=== PATIENT | male | born 1980 | race Caucasian/White ===

== ENCOUNTER 2017-01-04 12:08 | Observation (INO) ==
[2017-01-04 14:37] LABS: Basophils # 0.1 K/mcL (0.0-0.2); Basophils % 0.6 %; Eosinophils # 0.1 K/mcL (0.0-0.6); Eosinophils % 0.9 %; Hematocrit 41.3 % (37.5-50.1); Hemoglobin 13.7 g/dL (12.9-16.9); Immature Granulocytes % 2.2 % (0-4); Lymphocytes # 1.4 K/mcL (0.6-4.6); Lymphocytes % 12.5 %; Mean Corpuscular HGB Conc 33.2 g/dL (31.6-35.5); Mean Corpuscular Hemoglobin 28.4 pg (28.0-33.3); Mean Corpuscular Volume 85.5 fL (83.0-100.0); Mean Platelet Volume 9.9 fL (9.4-12.4); Monocytes # 0.9 K/mcL (0.0-1.3); Monocytes % 8.6 %; Neutrophils # 8.1 K/mcL (1.6-8.9); Platelet Count 267 K/mcL (140-400); Red Blood Count 4.83 M/mcL (4.19-5.50); Red Cell Distribution Width 14.4 % (11.5-14.5); Segmented Neutrophils % 75.2 %
[2017-01-04 14:48] LABS: BUN/Creatinine Ratio 11 (6-26); Blood Urea Nitrogen 12 mg/dL (8-26); Calcium 9.8 mg/dL (8.6-10.8); Carbon Dioxide 26 mEq/L (19-29); Chloride 101 mEq/L (98-109); Glucose 106 mg/dL (70-99); Osmolality,Calculated 286 (280-300); Potassium 2.9 mEq/L (3.5-4.5); Sodium 138 mEq/L (136-145); eGFR For African Americans > 60 (> 60); eGFR For Non-African Americans > 60 (> 60)
--- NOTE | 2017-01-04 14:55 | Emergency Department Note ---
Disposition Clinical Impression: Cellulitis Qualifiers: Site of cellulitis: extremity Site of cellulitis of extremity: lower extremity Laterality: left Qualified Code(s): L03.116 - Cellulitis of left lower limb Disposition: Admitted As Inpatient Condition: Good Skin/Abscess/FB HPI Chief complaint: ED Skin/Abscess/Foreign Body Stated complaint: cellulitis in L leg Time Seen by Provider: 01/04/17 14:15 Source: patient Mode of arrival: private vehicle Limitations: no limitations Nursing Notes Reviewed: Yes Vital Signs Reviewed: Yes HPI Narrative: 36-year-old male presents to the ER with a chief complaint of left lower extremity redness. Patient states it started on the first of this month. He states it happened after he was standing for prolonged period of time. He was seen on the second at an urgent care where he was started on doxycycline for cellulitis. He states since that time that he has had worsening redness of his leg traveling more proximal. He denies any fevers nausea vomiting. He did have diarrhea the first 2 days but that subsided. No history of diabetes. Denies IV drug abuse. No history of DVT. No other complaints. Pt Subjective Complaint: discoloration Onset (ago): day(s) Location: LLE Severity: moderate Quality: aching Consistency: intermittent Improves with: none Worsens with: movement Context: none Associated symptoms: Denies: fever, nausea, vomiting Treatments prior to arrival: antibiotic Home Medications Medication Instructions Recorded Confirmed Amlodipine Besylate 10 mg PO DAILY 01/01/17 01/04/17 Citalopram Hydrobromide [Celexa] 40 mg PO DAILY 01/01/17 01/04/17 Losartan Potassium [Cozaar] 100 mg PO DAILY 01/01/17 01/04/17 Metoprolol Succinate 100 mg PO DAILY 01/01/17 01/04/17 hydroCHLOROthiazide 25 mg PO DAILY 01/01/17 01/04/17 [Hydrochlorothiazide] Loratadine [Claritin] 10 mg PO DAILY 01/04/17 01/04/17 Previous Rx's Medication Instructions Recorded Doxycycline 100 mg PO BID #14 capsule 01/01/17 HYDROcodone/Acet 5/325 mg [[place] 1 tab PO Q4H PRN #10 tab 01/01/17 5-325 mg] Allergies Allergy/AdvReac Type Severity Reaction Status Date / Time No Known Allergies Allergy Verified 01/01/17 19:39 All systems ED: reviewed and negative except as stated. Constitutional: Denies: fever, chills Cardiovascular: Denies: chest pain Respiratory: Denies: dyspnea Gastrointestinal: Denies: abdominal pain, nausea, vomiting, diarrhea Integumentary: Reports: rash Past Medical History - Past Medical History Attestation: Yes The following information was validated with the patient. Source: patient Medical history: Reports: hypertension Surgical history: Reports: non-contributory - Social History Smoking Status: 2nd Hand Smoke Exposure Smokeless Tobacco Status: No Alcohol use: Reports: occasionally Drug use: Reports: none Physical Exam - General Limitations: no limitations General appearance: alert, in no apparent distress - Head Head exam: atraumatic, normocephalic, normal inspection - Eye Eye exam: Present: normal appearance, EOMI - ENT ENT exam: normal exam - Neck Neck exam: Present: normal inspection, full ROM - Chest Chest inspection: Present: normal inspection, symmetric chest wall rise - Respiratory Respiratory exam: Present: normal lung sounds bilaterally - Cardiovascular Cardiovascular exam: Present: regular rate, normal rhythm, normal heart sounds - Abdominal Exam Abdominal exam: Present: soft, Non-Tender. Absent: tenderness - Extremities Exam Extremities exam: Present: normal inspection, full ROM - Expanded Upper Extremity Exam Shoulder exam: Present: normal inspection, full ROM Arm exam: Present: normal inspection, full ROM Elbow exam: Present: normal inspection, full ROM Forearm/Wrist exam: Present: normal inspection, full ROM Hand exam: Present: normal inspection, full ROM Vascular exam: Normal: radial pulse - Expanded Lower Extremity Exam Hip/Pelvis exam: Present: normal inspection, full ROM Upper leg exam: Present: normal inspection, full ROM, erythema (Small area of erythema just inferior to the left inguinal crease) Knee exam: Present: normal inspection, full ROM Lower leg exam: Present: normal inspection, full ROM, erythema (There is erythema to the left lower cruz but he distal to the knee with circumferential erythema just superior to the left ankle.) Ankle exam: Present: normal inspection, full ROM Foot/toe exam: Present: normal inspection, full ROM - Neurological Exam Neurological exam: Present: alert, other (GCS 15. Nonfocal neurologic exam.) - Psychiatric Psychiatric exam: Present: normal affect, normal mood - Skin Skin exam: Present: warm, dry, intact, erythema (Left lower extremity from the knee distal) Course Course Narrative: Patient seen and examined. He has cellulitis from his left knee to his foot. He has failed outpatient therapy. We will obtain labs and likely admission for cellulitis felt outpatient therapy. Vital Signs Temperature 97.7 F 01/04/17 12:20 Pulse Rate 90 01/04/17 12:20 Respiratory Rate 18 01/04/17 12:20 Blood Pressure 165/90 01/04/17 12:20 O2 Sat by Pulse Oximetry 96 01/04/17 12:20 Temperature 97.6 F 01/04/17 17:54 Pulse Rate 80 01/04/17 17:54 Respiratory Rate 17 01/04/17 17:54 Blood Pressure 181/98 01/04/17 17:54 O2 Sat by Pulse Oximetry 96 01/04/17 17:54 Oxygen Delivery Oxygen Delivery Room Air Skin/Abscess/Foreign Body - MDM Narrative Medical decision making narrative: 36-year-old male presents to the ER due to redness of his left lower extremity. He was placed on antibiotics 3 days ago without improvement. States is actually worsened a little bit. No fevers nausea vomiting or diarrhea at home recently. He is well-appearing nontoxic here. He does have cellulitis from his knee distal on the left. Patient given a dose of vancomycin and admitted for failed outpatient therapy. - Lab Data Lab results reviewed: Yes I reviewed the patient's lab results. Result diagrams: 01/04/17 14:23 01/04/17 14:23 Lab Results 01/04/17 01/04/17 Range/Units 14:23 14:23 WBC 10.8 (4.3-11.1) K/mcL RBC 4.83 (4.19-5.50) M/mcL Hgb 13.7 (12.9-16.9) g/dL Hct 41.3 (37.5-50.1) % MCV 85.5 (83.0-100.0) fL MCH 28.4 (28.0-33.3) pg MCHC 33.2 (31.6-35.5) g/dL RDW 14.4 (11.5-14.5) % Plt Count 267 (140-400) K/mcL MPV 9.9 (9.4-12.4) fL Immature Gran % 2.2 (0-4) % Seg Neutrophils % 75.2 % Lymphocytes % 12.5 % Monocytes % 8.6 % Eosinophils % 0.9 % Basophils % 0.6 % Neutrophils # 8.1 (1.6-8.9) K/mcL Lymphocytes # 1.4 (0.6-4.6) K/mcL Monocytes # 0.9 (0.0-1.3) K/mcL Eosinophils # 0.1 (0.0-0.6) K/mcL Basophils # 0.1 (0.0-0.2) K/mcL Sodium 138 (136-145) mEq/L Potassium 2.9 L (3.5-4.5) mEq/L Chloride 101 (98-109) mEq/L Carbon Dioxide 26 (19-29) mEq/L BUN 12 (8-26) mg/dL Creatinine 1.06 (0.72-1.25) mg/dL Est GFR ( Amer) > 60 (> 60) Est GFR (Non-Af Amer) > 60 (> 60) BUN/Creatinine Ratio 11 (6-26) Glucose 106 H (70-99) mg/dL Calculated Osmolality 286 (280-300) Calcium 9.8 (8.6-10.8) mg/dL Magnesium 2.2 (1.6-2.6) mg/dL - Radiology Data Radiology results reviewed: Yes I reviewed the patient's radiology results. Foot X-Ray 01/04/17 15:25 IMPRESSION: No acute osseous abnormality identified. D/ / Deuce Cunningham MD / Deuce Cunningham MD Interpreting Provider: Deuce Cunningham MD Attestation Statement - Attestation Attestation: I examined this patient and my medical decision-making was reviewed with the Resident Physician, Dr. Moses. I agree with the documented findings, disposition and treatment plan as described except to the extent set forth below. Patient is a 36-year-old morbidly obese white male who presents the emergency department today with gradually worsening left lower extremity redness pain and swelling concerning for cellulitis. Patient with no prior history of cellulitis or abscess issues. Patient denies any history of diabetes. Patient denies any fevers chills or other constitutional symptoms. Patient was seen on December 31 at an urgent care with a small area of redness to his left lower leg, diagnosed with cellulitis and started on doxycycline. Patient's been taking his medication as prescribed and despite the symptoms have been worsening since he started antibiotics on the second. Area of redness is very large and encompasses the entire circumferential area of the lower leg as well as the medial upper thigh. Patient denies any pain in the left calf or behind the knee. No history of trauma to the lower extremity. Patient is hemodynamically stable on arrival. I agree with patient's physical exam findings as documented. Patient was started on IV antibiotics following blood cultures. There is no discrete abscess or area of induration that is concerning for a fluid collection. Due to the extensive nature of the cellulitis and outpatient treatment failure we will admit the patient for continued IV antibiotics and wound management.
[2017-01-04] MEDS ORDERED: Vancomycin 2,000 MG in D5% in Water 250 ML IVPB ONE (15:17)
[2017-01-04 15:25] LABS: Magnesium 2.2 mg/dL (1.6-2.6)
[2017-01-04] MEDS ORDERED: Vancomycin 2,000 MG in D5% in Water 500 ML IVPB ONE (15:30)
[2017-01-04] MEDS ORDERED: *HR* HYDROcodone/Acet 5/325 mg TABLET PO PRN (16:53)
[2017-01-04] MEDS ORDERED: Naloxone 0.4 MG/ML INJ IVP PRN (16:53)
[2017-01-04] MEDS ORDERED: *HR* Morphine 2 MG/ML SYRINGE IVP PRN (16:53)
[2017-01-04] MEDS ORDERED: Ondansetron 4 MG/2 ML VIAL IVP PRN (16:53)
[2017-01-04] MEDS ORDERED: Acetaminophen 325 MG TABLET PO PRN (16:53)
--- NOTE | 2017-01-04 17:00 | Internal Med History&Physical ---
Date of Encounter: 01/04/17 Time of Encounter: 16:59 Assessment and Plan (1) Cellulitis Current visit: Yes Status: Acute Patient with cellulitis of entire Left leg with associated lymphangitis and subcutaneous clear fluid collection Patient is afebrile and his WBC is normal, he is not septic There is no focal entry point and he is not an IV drug user Continue Vancomycin-patient failed out patient therapy Add Zosyn for strep/anerobic coverage Obtain Left leg CT scan to r/o any collection Even though his Left leg is firm from this swelling, he does have good circulation and there is no evidence of compartment syndrome at this time Pain control Doppler USS to r/o DVT High risk due to use of Vancomycin Qualifiers: Site of cellulitis: extremity Site of cellulitis of extremity: lower extremity Laterality: left Qualified Code(s): L03.116 - Cellulitis of left lower limb (2) Hypertension Current visit: Yes Status: Chronic Uncontrolled, possibly exacerbated by pain Resume home meds Qualifiers: Hypertension type: essential hypertension Qualified Code(s): I10 - Essential (primary) hypertension (3) Hypokalemia Current visit: Yes Status: Acute Repleted with 40meq K Mag is normal Possibly from use of HCTZ for HTN Continue to monitor (4) Morbid obesity Current visit: Yes Status: Chronic Qualifies for bariatic surgery based on BMI of 65 with HTN/ZIGGY Lifestyle modification (5) ZIGGY (obstructive sleep apnea) Current visit: Yes Status: Chronic Ensure CPAP at bedtime Internal Medicine - H&P: HPI Chief complaint: Left leg swelling Admitted From: Home Plans for Post Hospital Care: Home History of present illness: Mr. Godwin is a 36 year old male with PH of Morbid Obesity, HTN, Anxiety, ZIGGY on CPAP at home He presented following a days history of swelling, redness and pain of his LLE following work on Sunday He reports he had been standing for a prolonged period of time prior to onset He denies trauma, insect bite, extreme temperature or recent surgery He presented to the Urgent care where he was given doxy po and he returned to the ER because of worsening pain and swelling. He denies fever or chills, or recent travels. he denied IV drug use He has no allergies No chest, abdomen or neurologic symptoms Past Med Surg Social Fam HX - Past Medical History Medical history: hypertension, other (ZIGGY) Psychiatric history: anxiety - Past Surgical History Surgical History: non-contributory - Social History Smoking Status: 2nd Hand Smoke Exposure Smokeless Tobacco Status: No Alcohol use: occasionally Drug use: none Internal Medicine - H&P: Meds Amlodipine Besylate 10 mg PO DAILY 01/01/17 [History] Citalopram Hydrobromide [Celexa] 40 mg PO DAILY 01/01/17 [History] Doxycycline 100 mg PO BID #14 capsule 01/01/17 [Rx] HYDROcodone/Acet 5/325 mg [[place] 5-325 mg] 1 tab PO Q4H PRN #10 tab 01/01/17 [Rx ] Losartan Potassium [Cozaar] 100 mg PO DAILY 01/01/17 [History] Metoprolol Succinate 100 mg PO DAILY 01/01/17 [History] hydroCHLOROthiazide [Hydrochlorothiazide] 25 mg PO DAILY 01/01/17 [History] Loratadine [Claritin] 10 mg PO DAILY 01/04/17 [History] 3 Allergy/AdvReac Type Severity Reaction Status Date / Time No Known Allergies Allergy Verified 01/01/17 19:39 All Systems PM: A 10-system review of systems was performed and is negative for pertinent findings except as documented above in the HPI. - Constitutional Constitutional: no chills, no fever(s), no night sweats - EENT Eyes: no change in vision, no discharge, no pain, no photophobia Ears: no ear discharge, no ear pain, no tinnitus Nose, mouth and throat: no dysphagia, no nasal discharge, no neck pain, no sore throat - Cardiovascular Cardiovascular ROS IM: no chest pain, no diaphoresis, no dyspnea, no lightheadedness, no palpitations, no syncope - Respiratory Respiratory: no cough, no dyspnea, no wheezing, no excessive phlegm production - Gastrointestinal Gastrointestinal: no abdominal pain, no diarrhea, no hematemesis, no hematochezia, no melena, no nausea, no vomiting - Musculoskeletal Musculoskeletal ROS IM: as per HPI - Integumentary Integumentary IM: as per HPI - Neurological Neurological ROS: no confusion, no convulsions, no focal weakness, no numbness, no tingling, no tremor(s) - Hematologic/Lymphatic Hematologic/Lymphatic: no easy bruising - Constitutional Vitals: Temp Pulse Resp BP Pulse Ox 97.7 F 90 18 165/90 96 01/04/17 12:20 01/04/17 12:20 01/04/17 12:20 01/04/17 12:20 01/04/17 12:20 General appearance: Present: mild distress, A&O X 3, morbidly obese, pleasant - Head Head exam: Present: atraumatic, normocephalic - Eye Eye exam: Present: PERRL, conjuntiva pink, sclera anicteric Pupils: Present: PERRL - Neck Neck exam general surgery: Present: supple, trachea midline. Absent: lymphadenopathy - Respiratory Respiratory exam: Present: CTAB. Absent: accessory muscle use, rales, rhonchi, wheezes - Cardiovascular Cardiovascular exam: Present: RRR, +S1, +S2. Absent: diastolic murmur, gallop, rubs, systolic murmur - GI/Abdominal GI/Abdominal exam: Present: normal bowel sounds, soft, no peritoneal signs. Absent: distended, tenderness - Extremities Exam Additional comments: LLE with diffuse erythema from the ankle to the knee, associated subcutaneous fluid collection with spontaneous drainage of serous fluid Associated tenderness++. he also has lymphangitis up to his hip Left foot sensation is intact and toes are well perfused Internal Med - H&P Results - Labs CBC & Chem 7: 01/04/17 14:23 01/04/17 14:23 Labs: Short CBC 01/04/17 Range/Units 14:23 WBC 10.8 (4.3-11.1) K/mcL Hgb 13.7 (12.9-16.9) g/dL Hct 41.3 (37.5-50.1) % Plt Count 267 (140-400) K/mcL Neutrophils # 8.1 (1.6-8.9) K/mcL BMP 01/04/17 14:23 Sodium 138 Potassium 2.9 L Chloride 101 Carbon Dioxide 26 BUN 12 Creatinine 1.06 Glucose 106 H Calcium 9.8 - Impressions ITS Impressions Foot X-Ray 01/04/17 15:25 IMPRESSION: No acute osseous abnormality identified. D/ / Deuce Cunningham MD / Deuce Cunningham MD Interpreting Provider: Deuce Cunningham MD
[2017-01-04] MEDS: *HR* Heparin 5,000 UNIT/ML VIAL SQ SCH (19:07)
[2017-01-05 01:43] LABS: Basophils # 0.1 K/mcL (0.0-0.2); Basophils % 0.7 %; Eosinophils # 0.2 K/mcL (0.0-0.6); Eosinophils % 1.6 %; Hematocrit 37.4 % (37.5-50.1); Hemoglobin 12.5 g/dL (12.9-16.9); Immature Granulocytes % 2.3 % (0-4); Lymphocytes # 1.6 K/mcL (0.6-4.6); Lymphocytes % 16.4 %; Mean Corpuscular HGB Conc 33.4 g/dL (31.6-35.5); Mean Corpuscular Volume 86.8 fL (83.0-100.0); Monocytes # 0.9 K/mcL (0.0-1.3); Monocytes % 9.3 %; Neutrophils # 6.9 K/mcL (1.6-8.9); Platelet Count 255 K/mcL (140-400); Red Blood Count 4.31 M/mcL (4.19-5.50); Red Cell Distribution Width 14.4 % (11.5-14.5); Segmented Neutrophils % 69.7 %
[2017-01-05 01:55] LABS: BUN/Creatinine Ratio 14 (6-26); Blood Urea Nitrogen 16 mg/dL (8-26); Calcium 9.3 mg/dL (8.6-10.8); Carbon Dioxide 27 mEq/L (19-29); Chloride 103 mEq/L (98-109); Glucose 110 mg/dL (70-99); Hemoglobin A1C 5.2 %; Osmolality,Calculated 292 (280-300); Sodium 140 mEq/L (136-145); eGFR For African Americans > 60 (> 60); eGFR For Non-African Americans > 60 (> 60)
[2017-01-05] MEDS: *HR* Heparin 5,000 UNIT/ML VIAL SQ SCH ×4 (01:57→16:27)
[2017-01-05] MEDS ORDERED: Vancomycin 2,000 MG in D5% in Water 250 ML IVPB SCH (03:00)
[2017-01-05] MEDS: Vancomycin 2,000 MG in D5% in Water 500 ML IVPB SCH ×2 (04:09→16:22)
--- NOTE | 2017-01-05 08:36 | Internal Med Progress Note ---
Date of Encounter: 01/05/17 Time of Encounter: 08:36 - Assessment and plan (1) Cellulitis Current Visit: Yes Status: Acute Assessment and plan: Patient with cellulitis of entire Left leg with associated lymphangitis and subcutaneous clear fluid collection Patient is afebrile and his WBC is normal, he is not septic There is no focal entry point and he is not an IV drug user Continue vanco and Zosyn till cultures are back CT not done due to body size Doppler sair to be poor stud due to habitus, but no DVT Continue pain control High risk due to use of Vancomycin Qualifiers: Site of cellulitis: extremity Site of cellulitis of extremity: lower extremity Laterality: left Qualified Code(s): L03.116 - Cellulitis of left lower limb (2) Hypertension Current Visit: Yes Status: Chronic Assessment and plan: Controlled, continue current meds Qualifiers: Hypertension type: essential hypertension Qualified Code(s): I10 - Essential (primary) hypertension (3) Hypokalemia Current Visit: Yes Status: Acute Assessment and plan: K 3.0 Continue daily potassium replacement (4) Morbid obesity Current Visit: Yes Status: Chronic Assessment and plan: Lifestyle modification (5) ZIGGY (obstructive sleep apnea) Current Visit: Yes Status: Chronic Assessment and plan: Ensure CPAP at night - Subjective Interval history: Seen and evaluated at bedside No new complains CT scan not done due to patient size Remains afebrile Awaiting blood and wound culture - Constitutional Vitals: Temp Pulse Resp BP Pulse Ox 98.2 F 87 16 111/65 98 01/05/17 07:00 01/05/17 07:00 01/05/17 07:00 01/05/17 07:00 01/05/17 07:00 General appearance: Present: A&O X 3, morbidly obese, pleasant, no acute distress - Head Head exam: Present: atraumatic, normocephalic - Eye Eye exam: Present: PERRL, conjuntiva pink, sclera anicteric Pupils: Present: PERRL - Neck Neck exam general surgery: Present: supple, trachea midline. Absent: lymphadenopathy - Respiratory Respiratory exam: Present: CTAB. Absent: accessory muscle use, rales, rhonchi, wheezes - Cardiovascular Cardiovascular exam: Present: RRR, +S1, +S2. Absent: diastolic murmur, gallop, rubs, systolic murmur - GI/Abdominal GI/Abdominal exam: Present: normal bowel sounds, soft, no peritoneal signs. Absent: distended, tenderness - Extremities Exam Additional comments: LLE with diffuse erythema from the ankle to the knee, associated subcutaneous fluid collection with spontaneous drainage of serous fluid Associated tenderness++. he also has lymphangitis up to his hip Left foot sensation is intact and toes are well perfused Leg exam does look improved compared to 01/05/17 - Neurological Exam Neurological exam: Present: alert, CN II-XII intact, oriented X3, no focal deficits. Absent: pronater drift, facial droop, speech deficit - Skin Skin exam: Present: dry, intact Internal Medicine: Result - Labs CBC & Chem 7: 01/05/17 01:24 01/05/17 01:24 Labs: Short CBC 01/05/17 Range/Units 01:24 WBC 9.9 (4.3-11.1) K/mcL Hgb 12.5 L (12.9-16.9) g/dL Hct 37.4 L (37.5-50.1) % Plt Count 255 (140-400) K/mcL Neutrophils # 6.9 (1.6-8.9) K/mcL BMP 01/05/17 01:24 Sodium 140 Potassium 3.0 L Chloride 103 Carbon Dioxide 27 BUN 16 Creatinine 1.13 Glucose 110 H Calcium 9.3 Consult Discharge Plan - Plan Referrals: Chet Lubin MD [Primary Care Provider] -
[2017-01-05] MEDS: Loratadine 10 MG TABLET PO SCH (10:42)
[2017-01-05] MEDS: hydroCHLOROthiazide 25 MG TABLET PO SCH (10:42)
[2017-01-05] MEDS: amLODIPine 5 MG TABLET PO SCH (10:42)
[2017-01-05] MEDS: Metoprolol XL (24 HR) Succ 50 MG TAB.ER.24H PO SCH (10:43)
[2017-01-05] MEDS: Piperacillin/Tazobactam 3.375 GM in D5% in Water (Mini-Bag+) 100 ML IVPB SCH (17:43)
[2017-01-06] MEDS: Piperacillin/Tazobactam 3.375 GM in D5% in Water (Mini-Bag+) 100 ML IVPB SCH ×3 (01:52→17:31)
[2017-01-06] MEDS: *HR* Heparin 5,000 UNIT/ML VIAL SQ SCH ×3 (01:52→17:29)
[2017-01-06 03:59] LABS: BUN/Creatinine Ratio 16 (6-26); Blood Urea Nitrogen 16 mg/dL (8-26); Calcium 9.1 mg/dL (8.6-10.8); Carbon Dioxide 26 mEq/L (19-29); Chloride 102 mEq/L (98-109); Glucose 120 mg/dL (70-99); Osmolality,Calculated 286 (280-300); Potassium 3.2 mEq/L (3.5-4.5); Sodium 137 mEq/L (136-145); eGFR For African Americans > 60 (> 60); eGFR For Non-African Americans > 60 (> 60)
[2017-01-06] MEDS: Vancomycin 2,000 MG in D5% in Water 500 ML IVPB SCH ×3 (05:14→21:22)
--- NOTE | 2017-01-06 08:25 | Internal Med Progress Note ---
Date of Encounter: 01/06/17 Time of Encounter: 08:25 - Assessment and plan (1) Cellulitis Current Visit: Yes Status: Acute Assessment and plan: Patient with cellulitis of entire Left leg with associated lymphangitis and subcutaneous clear fluid collection Patient is afebrile and his WBC is normal, he is not septic Day 2 on Vanco and Zosyn, continue same, vanco trough sub-therapeutic Surgery consulted for possible I and D CT not done due to body size Doppler said to be poor stud due to habitus, but no DVT Continue pain control High risk due to use of Vancomycin Qualifiers: Qualified Code(s): L03.116 - Cellulitis of left lower limb (2) Hypertension Current Visit: Yes Status: Chronic Assessment and plan: Controlled, continue current meds Qualifiers: Qualified Code(s): I10 - Essential (primary) hypertension (3) Hypokalemia Current Visit: Yes Status: Acute Assessment and plan: K 3.2 Continue daily potassium replacement (4) Morbid obesity Current Visit: Yes Status: Chronic Assessment and plan: Lifestyle modification (5) ZIGGY (obstructive sleep apnea) Current Visit: Yes Status: Chronic Assessment and plan: Ensure CPAP at night - Subjective Interval history: Seen and evaluated at bedside He is being managed for LLE cellulitis This morning he complained of pain on the leg, he otherwise denies any other complains He is ambulatory - Constitutional Vitals: Temp Pulse Resp BP Pulse Ox 97.7 F 77 20 133/75 98 01/06/17 07:16 01/06/17 07:16 01/06/17 07:16 01/06/17 07:16 01/06/17 07:16 General appearance: Present: A&O X 3, morbidly obese, pleasant, no acute distress - Head Head exam: Present: atraumatic, normocephalic - Eye Eye exam: Present: PERRL, conjuntiva pink, sclera anicteric Pupils: Present: PERRL - Neck Neck exam general surgery: Present: supple, trachea midline. Absent: lymphadenopathy - Respiratory Respiratory exam: Present: CTAB. Absent: accessory muscle use, rales, rhonchi, wheezes - Cardiovascular Cardiovascular exam: Present: RRR, +S1, +S2. Absent: diastolic murmur, gallop, rubs, systolic murmur - GI/Abdominal GI/Abdominal exam: Present: normal bowel sounds, soft, no peritoneal signs. Absent: distended, tenderness - Extremities Exam Additional comments: LLE wih diffuse swelling and redness, improved compared to admission but worsening/stable subcutaneous swelling with flucutancy and induration - Neurological Exam Neurological exam: Present: alert, CN II-XII intact, oriented X3, no focal deficits. Absent: pronater drift, facial droop, speech deficit - Skin Skin exam: Present: dry Internal Medicine: Result - Labs CBC & Chem 7: 01/05/17 01:24 01/06/17 03:30 Labs: BMP 01/06/17 03:30 Sodium 137 Potassium 3.2 L Chloride 102 Carbon Dioxide 26 BUN 16 Creatinine 0.99 Glucose 120 H Calcium 9.1 Consult Discharge Plan - Plan Referrals: Chet Lubin MD [Primary Care Provider] -
--- NOTE | 2017-01-06 09:36 | General Surgery Consult Note ---
<Melanie Nieves - Last Filed: 01/06/17 10:52> Date of Encounter: 01/06/17 Time of Encounter: 09:15 Assessment and Plan (1) Cellulitis Current Visit: Yes Status: Acute Patient has had 6 days of cellulitis with failed outpatient treatment with doxycycline. No fever documented during hospital stay. WBC has been within normal limits. Patient initiated on Vanco and Zosyn 2 days ago and has seen no improvement of redness. Vanco trough today subtherapeutic. Xray showed no osteomyelitis. LLE US of the abscess has been ordered. Plan: - awaiting LLE US of abscess - continue Vanco and Zosyn Qualifiers: Site of cellulitis: extremity Site of cellulitis of extremity: lower extremity Laterality: left Qualified Code(s): L03.116 - Cellulitis of left lower limb (2) Hypokalemia Current Visit: Yes Status: Acute K= 3.2. Managed by primary team. (3) Hypertension Current Visit: Yes Status: Chronic Qualifiers: Hypertension type: essential hypertension Qualified Code(s): I10 - Essential (primary) hypertension (4) Morbid obesity Current Visit: Yes Status: Chronic (5) ZIGGY (obstructive sleep apnea) Current Visit: Yes Status: Chronic History of Present Illness Consult date: 01/06/17 Reason for consult: other (cellulitis and possible abcess) Requesting physician: Todd Johnson History of present illness: Patient is a 36-year-old male presented to the ER with left lower extremity red rash and pain and admitted for cellulitis with failed outpatient therapy. 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 He denies any trauma that night. Sunday went to urgent care and received doxycycline. He did not notice any changes and therefore came into the ED on evening. Only associated symptom was diarrhea which began on Sunday. Denies fevers, chills. Not an IV drug user or smoker. X-ray showed soft tissue swelling along the dorsal aspect of the midfoot. CT unable to be obtained due to size. Doppler US of the LLE for DVT unable to visualize due to body habitus. Patient was initiated on Vanco and Zosyn and no improvement of redness since starting. Vanco trough today was 7.9. Wound culture showed normal skin wili. LLE US of the area to see if there is an abscess has been ordered. 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) - Family History Grandfather Living Status: Cause of : lung cancer Father Living Status: Mother Living Status: Still Living Medications and Allergies Amlodipine Besylate 10 mg PO DAILY 01/01/17 [History] Citalopram Hydrobromide [Celexa] 40 mg PO DAILY 01/01/17 [History] Doxycycline 100 mg PO BID #14 capsule 01/01/17 [Rx] HYDROcodone/Acet 5/325 mg [[place] 5-325 mg] 1 tab PO Q4H PRN #10 tab 01/01/17 [Rx ] Losartan Potassium [Cozaar] 100 mg PO DAILY 01/01/17 [History] Metoprolol Succinate 100 mg PO DAILY 01/01/17 [History] hydroCHLOROthiazide [Hydrochlorothiazide] 25 mg PO DAILY 01/01/17 [History] Loratadine [Claritin] 10 mg PO DAILY 01/04/17 [History] 3 Allergy/AdvReac Type Severity Reaction Status Date / Time No Known Allergies Allergy Verified 01/01/17 19:39 Review of Systems All systems PM: A 10-system review of systems was performed and is negative for pertinent findings except as documented above in the HPI. - Constitutional as per HPI General Surgery Exam Initial Vital Signs Temp Pulse Resp BP Pulse Ox 97.7 F 90 18 165/90 96 01/04/17 12:20 01/04/17 12:20 01/04/17 12:20 01/04/17 12:20 01/04/17 12:20 - Additional Findings Constitutional: Alert, in no acute distress, well nourished, well developed. Head: Normocephalic, atraumatic, normal contour and symmetric, no masses, lesions or scars Heart: Normal, regular rate and rhythm, no murmurs Lungs: Clear to auscultation, no wheezes, rales, or rhonchi Abdomen: Soft, nondistended, nontender, and no masses palpable, bowel sounds present and normal, no guarding or rigidity. Extremities: LLE band of redness, increase warmth, and raised induration circumferential in an irregular band-like pattern around mid calf, redness stops a couple of inches before the knee and inferiorly stops before the ankle joint, no fluctuant mass is found, edema is 2+ pitting edema extending into his foot but not extending up past his knee. Pulses unable to be palpated but capillary refill <2 sec and no change in color of the skin. Skin: Skin warm and dry, no lesions, no rashes, no jaundice Neurologic: Cranial nerves II through XII grossly intact, no focal deficits, strength within normal limits in all extremities Psych: Cooperative with exam, good eye contact, cognitive function intact, judgment good insight good, speech clear, thought process logical, and goal directed Exam Initial Vital Signs Temp Pulse Resp BP Pulse Ox 97.7 F 90 18 165/90 96 01/04/17 12:20 01/04/17 12:20 01/04/17 12:20 01/04/17 12:20 01/04/17 12:20 Results - Labs 01/05/17 01:24 01/06/17 03:30 Abnormal lab results Hgb 12.5 g/dL (12.9-16.9) L 01/05/17 01:24 Hct 37.4 % (37.5-50.1) L 01/05/17 01:24 Potassium 3.2 mEq/L (3.5-4.5) L 01/06/17 03:30 Glucose 120 mg/dL (70-99) H 01/06/17 03:30 Vancomycin Trough 7.9 mcg/mL (10-20) L 01/06/17 03:30 Diabetes panel 01/06/17 Range/Units 03:30 Sodium 137 (136-145) mEq/L Potassium 3.2 L (3.5-4.5) mEq/L Chloride 102 (98-109) mEq/L Carbon Dioxide 26 (19-29) mEq/L BUN 16 (8-26) mg/dL Creatinine 0.99 (0.72-1.25) mg/dL Glucose 120 H (70-99) mg/dL Calcium 9.1 (8.6-10.8) mg/dL Calcium panel 01/06/17 Range/Units 03:30 Calcium 9.1 (8.6-10.8) mg/dL Pituitary panel 01/06/17 Range/Units 03:30 Sodium 137 (136-145) mEq/L Potassium 3.2 L (3.5-4.5) mEq/L Chloride 102 (98-109) mEq/L Carbon Dioxide 26 (19-29) mEq/L BUN 16 (8-26) mg/dL Creatinine 0.99 (0.72-1.25) mg/dL Glucose 120 H (70-99) mg/dL Calcium 9.1 (8.6-10.8) mg/dL Adrenal panel 01/06/17 Range/Units 03:30 Sodium 137 (136-145) mEq/L Potassium 3.2 L (3.5-4.5) mEq/L Chloride 102 (98-109) mEq/L Carbon Dioxide 26 (19-29) mEq/L BUN 16 (8-26) mg/dL Creatinine 0.99 (0.72-1.25) mg/dL Glucose 120 H (70-99) mg/dL Calcium 9.1 (8.6-10.8) mg/dL All other labs normal. Consult Discharge Plan - Plan Referrals: Chet Lubin MD [Primary Care Provider] - <Lenard Lobo - Last Filed: 01/06/17 12:29> Date of Encounter: 01/06/17 Review of Systems All systems PM: A 10-system review of systems was performed and is negative for pertinent findings except as documented above in the HPI. General Surgery Exam Initial Vital Signs Temp Pulse Resp BP Pulse Ox 97.7 F 90 18 165/90 96 01/04/17 12:20 01/04/17 12:20 01/04/17 12:20 01/04/17 12:20 01/04/17 12:20 Exam Initial Vital Signs Temp Pulse Resp BP Pulse Ox 97.7 F 90 18 165/90 96 01/04/17 12:20 01/04/17 12:20 01/04/17 12:20 01/04/17 12:20 01/04/17 12:20 Results - Labs 01/05/17 01:24 01/06/17 03:30 Abnormal lab results Hgb 12.5 g/dL (12.9-16.9) L 01/05/17 01:24 Hct 37.4 % (37.5-50.1) L 01/05/17 01:24 Potassium 3.2 mEq/L (3.5-4.5) L 01/06/17 03:30 Glucose 120 mg/dL (70-99) H 01/06/17 03:30 Vancomycin Trough 7.9 mcg/mL (10-20) L 01/06/17 03:30 Diabetes panel 01/06/17 Range/Units 03:30 Sodium 137 (136-145) mEq/L Potassium 3.2 L (3.5-4.5) mEq/L Chloride 102 (98-109) mEq/L Carbon Dioxide 26 (19-29) mEq/L BUN 16 (8-26) mg/dL Creatinine 0.99 (0.72-1.25) mg/dL Glucose 120 H (70-99) mg/dL Calcium 9.1 (8.6-10.8) mg/dL Calcium panel 01/06/17 Range/Units 03:30 Calcium 9.1 (8.6-10.8) mg/dL Pituitary panel 01/06/17 Range/Units 03:30 Sodium 137 (136-145) mEq/L Potassium 3.2 L (3.5-4.5) mEq/L Chloride 102 (98-109) mEq/L Carbon Dioxide 26 (19-29) mEq/L BUN 16 (8-26) mg/dL Creatinine 0.99 (0.72-1.25) mg/dL Glucose 120 H (70-99) mg/dL Calcium 9.1 (8.6-10.8) mg/dL Adrenal panel 01/06/17 Range/Units 03:30 Sodium 137 (136-145) mEq/L Potassium 3.2 L (3.5-4.5) mEq/L Chloride 102 (98-109) mEq/L Carbon Dioxide 26 (19-29) mEq/L BUN 16 (8-26) mg/dL Creatinine 0.99 (0.72-1.25) mg/dL Glucose 120 H (70-99) mg/dL Calcium 9.1 (8.6-10.8) mg/dL All other labs normal. - Attending Attestation I have seen and examined the patient. I have reviewed all pertinent imaging, labs, and notes, including this consult note. I agree with the above assessment and plan and include the following... 36M obese mail who presents with 6 days of worsening erythema and pain of LLE. He was evaluated at an urgent care center and started on antibiotics, but without resolution or improvement of erythema and pain. No reports of fevers or chills. He does report an episode of diarrhea. No drainage, fluctuance or crepitus on exam; Currently on IV abx. Will plan for US of LLE to evaluate for abscess; otherwise recommend continuing with abx regimen until resolution.
[2017-01-06] MEDS: Metoprolol XL (24 HR) Succ 50 MG TAB.ER.24H PO SCH (09:58)
[2017-01-06] MEDS: Loratadine 10 MG TABLET PO SCH (09:58)
[2017-01-06] MEDS: hydroCHLOROthiazide 25 MG TABLET PO SCH (09:59)
[2017-01-06] MEDS: amLODIPine 5 MG TABLET PO SCH (09:59)
[2017-01-07] MEDS: *HR* Heparin 5,000 UNIT/ML VIAL SQ SCH ×3 (00:34→17:30)
[2017-01-07] MEDS: Piperacillin/Tazobactam 3.375 GM in D5% in Water (Mini-Bag+) 100 ML IVPB SCH ×3 (02:52→17:39)
[2017-01-07 03:48] LABS: Basophils # 0.1 K/mcL (0.0-0.2); Basophils % 0.8 %; Eosinophils # 0.2 K/mcL (0.0-0.6); Eosinophils % 1.8 %; Hematocrit 37.7 % (37.5-50.1); Hemoglobin 12.4 g/dL (12.9-16.9); Immature Granulocytes % 4.8 % (0-4); Lymphocytes # 1.7 K/mcL (0.6-4.6); Lymphocytes % 16.5 %; Mean Corpuscular HGB Conc 32.9 g/dL (31.6-35.5); Mean Corpuscular Hemoglobin 28.8 pg (28.0-33.3); Mean Corpuscular Volume 87.5 fL (83.0-100.0); Mean Platelet Volume 9.6 fL (9.4-12.4); Monocytes # 0.8 K/mcL (0.0-1.3); Monocytes % 7.5 %; Neutrophils # 7.2 K/mcL (1.6-8.9); Platelet Count 344 K/mcL (140-400); Red Blood Count 4.31 M/mcL (4.19-5.50); Red Cell Distribution Width 14.3 % (11.5-14.5); Segmented Neutrophils % 68.6 %
[2017-01-07 03:55] LABS: BUN/Creatinine Ratio 15 (6-26); Blood Urea Nitrogen 14 mg/dL (8-26); Calcium 9.3 mg/dL (8.6-10.8); Carbon Dioxide 29 mEq/L (19-29); Chloride 102 mEq/L (98-109); Glucose 127 mg/dL (70-99); Osmolality,Calculated 288 (280-300); Sodium 138 mEq/L (136-145); eGFR For African Americans > 60 (> 60); eGFR For Non-African Americans > 60 (> 60)
[2017-01-07] MEDS: Vancomycin 1,750 MG in D5% in Water 500 ML IVPB SCH ×3 (05:17→22:24)
[2017-01-07] MEDS: Metoprolol XL (24 HR) Succ 50 MG TAB.ER.24H PO SCH (08:42)
[2017-01-07] MEDS: hydroCHLOROthiazide 25 MG TABLET PO SCH (08:42)
[2017-01-07] MEDS: Loratadine 10 MG TABLET PO SCH (08:42)
[2017-01-07] MEDS: amLODIPine 5 MG TABLET PO SCH (08:42)
--- NOTE | 2017-01-07 09:15 | Internal Med Progress Note ---
Date of Encounter: 01/07/17 Time of Encounter: 09:15 - Assessment and plan (1) Cellulitis Current Visit: Yes Status: Acute Assessment and plan: Patient with cellulitis of entire Left leg with associated lymphangitis and subcutaneous clear fluid collection, now draining spontaneously Patient is afebrile and his WBC is normal, he is not septic Day 3 on Vanco and Zosyn, continue same, vanco trough sub-therapeutic 01/06, today is 17.1 Continue same Surgery consulted for possible I and D, LE USS did not show any fluid collection CT not done due to body size Doppler said to be poor study due to habitus, but no DVT Send another wound culture from the draining site Consult wound care Continue pain control High risk due to use of Vancomycin Qualifiers: Site of cellulitis: extremity Site of cellulitis of extremity: lower extremity Laterality: left Qualified Code(s): L03.116 - Cellulitis of left lower limb (2) Hypertension Current Visit: Yes Status: Chronic Assessment and plan: Controlled, continue current meds Qualifiers: Hypertension type: essential hypertension Qualified Code(s): I10 - Essential (primary) hypertension (3) Hypokalemia Current Visit: Yes Status: Acute Assessment and plan: K 3.0, on diuretics, Mag WNL, replace with 80meq, rpt Chem am Continue daily potassium replacement (4) Morbid obesity Current Visit: Yes Status: Chronic Assessment and plan: Lifestyle modification (5) ZIGGY (obstructive sleep apnea) Current Visit: Yes Status: Chronic Assessment and plan: Ensure CPAP at night - Subjective Interval history: Seen and evaluated at bedside He is being managed for LLE cellulitis His left leg now has a free flowing drainage sero-sanguinous and staining his bedding He denies any new complains Extremity USS was negative for fluid collection - Constitutional Vitals: Temp Pulse Resp BP Pulse Ox 97.9 F 83 16 118/76 100 01/07/17 06:29 01/07/17 06:29 01/07/17 06:29 01/07/17 06:29 01/07/17 06:29 General appearance: Present: A&O X 3, morbidly obese, pleasant, no acute distress - Head Head exam: Present: atraumatic, normocephalic - Eye Eye exam: Present: PERRL, conjuntiva pink, sclera anicteric Pupils: Present: PERRL - Neck Neck exam general surgery: Present: supple, trachea midline. Absent: lymphadenopathy - Respiratory Respiratory exam: Present: CTAB. Absent: accessory muscle use, rales, rhonchi, wheezes - Cardiovascular Cardiovascular exam: Present: RRR, +S1, +S2. Absent: diastolic murmur, gallop, rubs, systolic murmur - GI/Abdominal GI/Abdominal exam: Present: normal bowel sounds, soft, no peritoneal signs. Absent: distended, tenderness - Extremities Exam Additional comments: LLE wih diffuse swelling and redness, improved compared to admission but worsening/stable subcutaneous swelling with flucutancy and induration, also now with an open blister on the posterior aaspect of the leg draining serosanguinous fluid - Neurological Exam Neurological exam: Present: alert, CN II-XII intact, oriented X3, no focal deficits. Absent: pronater drift, facial droop, speech deficit - Skin Skin exam: Present: dry Internal Medicine: Result - Labs CBC & Chem 7: 01/07/17 03:36 01/07/17 03:36 Labs: Short CBC 01/07/17 Range/Units 03:36 WBC 10.5 (4.3-11.1) K/mcL Hgb 12.4 L (12.9-16.9) g/dL Hct 37.7 (37.5-50.1) % Plt Count 344 (140-400) K/mcL Neutrophils # 7.2 (1.6-8.9) K/mcL BMP 01/07/17 03:36 Sodium 138 Potassium 3.0 L Chloride 102 Carbon Dioxide 29 BUN 14 Creatinine 0.96 Glucose 127 H Calcium 9.3 - Impressions Impressions Extremity Ultrasound 01/06/17 11:30 IMPRESSION: Soft tissue Edema. No focal drainable fluid collection D/ / Eleuterio Terry MD / Eleuterio Terry MD Interpreting Provider: Eleuterio Terry MD Consult Discharge Plan - Plan Referrals: Chet Lubin MD [Primary Care Provider] -
--- NOTE | 2017-01-07 12:43 | General Surgery Progress Note ---
Date of Encounter: 01/07/17 Time of Encounter: 12:41 - Assessment and Plan (1) Cellulitis Current Visit: Yes Status: Acute no abcess - cont current abx regimen, showing improvement on exam and subjectively by patient - no acute surgery needed - call with questions or if re-evaluation is needed Qualifiers: Site of cellulitis: extremity Site of cellulitis of extremity: lower extremity Laterality: left Qualified Code(s): L03.116 - Cellulitis of left lower limb Subjective Patient reports: no new complaints, feels better, pain is less Objective Vital Signs - Last 8 Hours Temp Pulse Resp BP Pulse Ox 01/07/17 06:29 97.9 F 83 16 118/76 100 Intake and Output 01/06/17 01/07/17 01/07/17 23:59 07:59 15:59 Intake Total 1140 / 1140 600 / 600 Balance 1140 / 1140 600 / 600 Intake: IV Fluids 700 / 700 600 / 600 Zosyn 3.375 GM In Dextrose 5% ( 200 / 200 100 / 100 Minibag+) 100 ML 100 ML @ 25 mls/hr IVPB Q8H [facility] Rx#: [id number] Vancocin 1,750 MG In Dextrose 5 500 / 500 500 / 500 % 500 ML @ 333.333 mls/hr IVPB Q8H [facility] Rx#:[id number] Oral 440 / 440 Other: # Voids 1 - General physical appearance well developed - Respiratory normal expansion, normal respiratory effort - Cardiovascular Cardiovascular exam: Present: RRR - Abdomen Abdomen: Present: soft - Integumentary other (decreased erythema to LLE; less pain per patient; no purulent drainage) - Neurologic CN 2-12 grossly intact - Psychiatric oriented to time, oriented to person, oriented to place - Labs 01/07/17 03:36 01/07/17 03:36 Diabetes panel 01/07/17 Range/Units 03:36 Sodium 138 (136-145) mEq/L Potassium 3.0 L (3.5-4.5) mEq/L Chloride 102 (98-109) mEq/L Carbon Dioxide 29 (19-29) mEq/L BUN 14 (8-26) mg/dL Creatinine 0.96 (0.72-1.25) mg/dL Glucose 127 H (70-99) mg/dL Calcium 9.3 (8.6-10.8) mg/dL Calcium panel 01/07/17 Range/Units 03:36 Calcium 9.3 (8.6-10.8) mg/dL Pituitary panel 01/07/17 Range/Units 03:36 Sodium 138 (136-145) mEq/L Potassium 3.0 L (3.5-4.5) mEq/L Chloride 102 (98-109) mEq/L Carbon Dioxide 29 (19-29) mEq/L BUN 14 (8-26) mg/dL Creatinine 0.96 (0.72-1.25) mg/dL Glucose 127 H (70-99) mg/dL Calcium 9.3 (8.6-10.8) mg/dL Adrenal panel 01/07/17 Range/Units 03:36 Sodium 138 (136-145) mEq/L Potassium 3.0 L (3.5-4.5) mEq/L Chloride 102 (98-109) mEq/L Carbon Dioxide 29 (19-29) mEq/L BUN 14 (8-26) mg/dL Creatinine 0.96 (0.72-1.25) mg/dL Glucose 127 H (70-99) mg/dL Calcium 9.3 (8.6-10.8) mg/dL - Imaging Additional Studies: US of LLE: no abscess Consult Discharge Plan - Plan Referrals: Chet Lubin MD [Primary Care Provider] -
[2017-01-08] MEDS: *HR* Heparin 5,000 UNIT/ML VIAL SQ SCH ×2 (00:53→09:00)
[2017-01-08] MEDS: Piperacillin/Tazobactam 3.375 GM in D5% in Water (Mini-Bag+) 100 ML IVPB SCH ×2 (01:24→09:00)
[2017-01-08 05:42] LABS: Basophils # 0.1 K/mcL (0.0-0.2); Basophils % 0.9 %; Eosinophils # 0.2 K/mcL (0.0-0.6); Eosinophils % 2.3 %; Hemoglobin 12.4 g/dL (12.9-16.9); Immature Granulocytes % 4.9 % (0-4); Lymphocytes # 1.7 K/mcL (0.6-4.6); Lymphocytes % 16.3 %; Mean Corpuscular HGB Conc 32.6 g/dL (31.6-35.5); Mean Corpuscular Hemoglobin 28.4 pg (28.0-33.3); Mean Corpuscular Volume 87.2 fL (83.0-100.0); Mean Platelet Volume 9.5 fL (9.4-12.4); Monocytes # 0.8 K/mcL (0.0-1.3); Monocytes % 7.7 %; Neutrophils # 7.1 K/mcL (1.6-8.9); Platelet Count 398 K/mcL (140-400); Red Blood Count 4.36 M/mcL (4.19-5.50); Red Cell Distribution Width 14.3 % (11.5-14.5); Segmented Neutrophils % 67.9 %
[2017-01-08 05:54] LABS: BUN/Creatinine Ratio 17 (6-26); Blood Urea Nitrogen 15 mg/dL (8-26); Calcium 9.5 mg/dL (8.6-10.8); Carbon Dioxide 26 mEq/L (19-29); Chloride 103 mEq/L (98-109); Glucose 114 mg/dL (70-99); Osmolality,Calculated 286 (280-300); Potassium 3.5 mEq/L (3.5-4.5); Sodium 137 mEq/L (136-145); eGFR For African Americans > 60 (> 60); eGFR For Non-African Americans > 60 (> 60)
[2017-01-08] MEDS ORDERED: Vancomycin 1,750 MG in D5% in Water 500 ML IVPB SCH (07:00)
[2017-01-08 08:03] VITALS: BP 121/74
[2017-01-08] MEDS: Loratadine 10 MG TABLET PO SCH (08:53)
[2017-01-08] MEDS: hydroCHLOROthiazide 25 MG TABLET PO SCH (08:54)
[2017-01-08] MEDS: Metoprolol XL (24 HR) Succ 50 MG TAB.ER.24H PO SCH (08:54)
[2017-01-08] MEDS: amLODIPine 5 MG TABLET PO SCH (08:54)
--- NOTE | 2017-01-08 12:39 | Discharge Summary ---
Date of Encounter: 01/08/17 Time of Encounter: 12:36 - Discharge Diagnosis (1) Cellulitis Priority: Primary Status: Acute Qualifiers: Site of cellulitis: extremity Site of cellulitis of extremity: lower extremity Laterality: left Qualified Code(s): L03.116 - Cellulitis of left lower limb (2) Hypertension Priority: Secondary Status: Chronic Qualifiers: Hypertension type: essential hypertension Qualified Code(s): I10 - Essential (primary) hypertension (3) Hypokalemia Priority: Primary Status: Resolved (4) Morbid obesity Priority: Secondary Status: Chronic (5) ZIGGY (obstructive sleep apnea) Priority: Secondary Status: Chronic - Discharge Medications Prescriptions: Clindamycin HCl [Cleocin HCl] 300 mg PO TID #15 cap Home Medications: Amlodipine Besylate 10 mg PO DAILY 01/01/17 [History] Citalopram Hydrobromide [Celexa] 40 mg PO DAILY 01/01/17 [History] HYDROcodone/Acet 5/325 mg [[place] 5-325 mg] 1 tab PO Q4H PRN #10 tab 01/01/17 [Rx ] Losartan Potassium [Cozaar] 100 mg PO DAILY 01/01/17 [History] Metoprolol Succinate 100 mg PO DAILY 01/01/17 [History] hydroCHLOROthiazide [Hydrochlorothiazide] 25 mg PO DAILY 01/01/17 [History] Loratadine [Claritin] 10 mg PO DAILY 01/04/17 [History] Clindamycin HCl [Cleocin HCl] 300 mg PO TID #15 cap 01/08/17 [Rx] Potassium Chloride 40 meq PO DAILY tab.er.prt 01/08/17 [Rx] Allergies/Adverse Reactions: 3 Allergy/AdvReac Type Severity Reaction Status Date / Time No Known Allergies Allergy Verified 01/01/17 19:39 Procedures/tests Complete & Pending: Procedures Performed prior 72 hours Category Date Time Status US extremity nonvascular LT [US] Stat Exams 01/06/17 11:30 Completed Date of admission: 01/04/17 17:17 Primary care physician: Chet Lubin, Consults: 01/06/17 08:57 Consult to Surgery [CONS] Stat Consulting Provider: [facility] Reason for Consult: LLE cellulitis with abscess Call Completed: Yes 01/07/17 09:53 Consult to Wound Care [CONS] Routine Reason for Consult: L leg posterior wound Call Completed: No Discharging clinician: Todd Johnson Anticipated date of discharge: 01/08/17 - Patient Status Disposition: Home, Self-Care Condition: Good Functional capacity at discharge: independent ambulation Overall status at discharge: patient is back to baseline - Discharge Instructions Follow Up With: Chet Lubin MD [Primary Care Provider] - - Diet and Activity Activity: resume usual activities as tolerated Diet: low fat, low cholesterol, low salt diet Interval History: See below Hospital course: Mr. Godwin is a 36 year old male with Morbid Obesity admitted and managed for LLE cellulitis His work up has been negative for DVT, abscess collection by USS. He is making slow clinical improvement He has a negative wound culture X2 He was not septic He also had hypokalemia ad hypomagnessemia which have been replaced and now normal He is stable to be discharged with clindamycin Wound care review prior to discharge he has a PCp appointment tmrw 01/09/17 - Time Spent with Patient Total time spent providing and/or coordinating discharge services: Greater than 30 minutes - Constitutional Vitals: Temp Pulse Resp BP Pulse Ox 98.2 F 83 16 121/74 94 01/08/17 07:59 01/08/17 07:59 01/08/17 07:59 01/08/17 07:59 01/08/17 07:59 General appearance: Present: A&O X 3, morbidly obese, pleasant, no acute distress - Head Head exam: Present: atraumatic, normocephalic - Eye Eye exam: Present: PERRL, conjuntiva pink, sclera anicteric Pupils: Present: PERRL - Neck Neck exam general surgery: Present: supple, trachea midline. Absent: lymphadenopathy - Respiratory Respiratory exam: Present: CTAB. Absent: accessory muscle use, rales, rhonchi, wheezes - Cardiovascular Cardiovascular exam: Present: RRR, +S1, +S2. Absent: diastolic murmur, gallop, rubs, systolic murmur - GI/Abdominal GI/Abdominal exam: Present: normal bowel sounds, soft, no peritoneal signs. Absent: distended, tenderness - Extremities Exam Additional comments: LLE with erythema and swelling, tenderness and subcutaneous fluid collection with blisters. This discharge has been cultured and negative His erythema does seem to be improving, his L foot is swollen, no erythema on his foot - Neurological Exam Neurological exam: Present: alert, CN II-XII intact, oriented X3, no focal deficits. Absent: pronater drift, facial droop, speech deficit - Skin Skin exam: Present: dry
[2017-01-08] MEDS ORDERED: Miconazole 2% ointment 114 GM TUBE TP SCH (14:45)
[2017-01-08] MEDS ORDERED: Aminoglycoside Consult 1 EACH MC ONE (16:26)
--- NOTE | 2017-01-09 17:24 | Venous Imaging Report ---
LE Venous Duplex Patient Name:Gideon Godwin Order Number:[id number] Procedure Date:01/04/2017 Date:1980Age:36 yrs Gender:Male Location:[facility] Room #: [id number] [place] Mixer:Tessa Ramírez RVT Referring MD:Todd Johnson MD bushler:Chet Lubin MD Reading MD:Aleksandar Jewell MD Primary Indications:Rule Out DVT Secondary Indications: Risk Factors Yes/No None Impressions: Normal left lower extremity deep and superficial venous exam. Findings Venous Duplex Results: Left: Venous imaging of the lower extremity reveals full patency and normal vessel compressibility of the left superficial femoral, left popliteal, left posterior tibial, left great saphenous and left lesser saphenous. Doppler signals in the evaluated veins were normal. Prior Study: No prior study available for comparison. Lower Extremity Venous Duplex Side Vein Compress Spontaneous Flow Augment Diameter (cm) Depth (cm) Left Distal Iliac Left Common Femoral Left Peroneal Updated by Aleksandar Jewell MD on 01/09/2017 5:16:43 PM electronically signed on 01/09/2017 5:17:00 PM with status of Final
== END 2017-01-08 16:27 | disposition home or self-care (01) ==
LOC: EMEROO 12:08 → 3NENU 12:08 → SUATTDRO 17:17 → 3NENU 17:39 → 3ANU 01-07 14:49
PROVIDERS: ADMIT Internal Medicine; ATTEND Internal Medicine